=== PATIENT | male | born 1965 | race Two or more races ===

== ENCOUNTER 2018-12-13 06:19 | Inpatient (IN) | payer SELFPAY ==
[~2018-12-13] VITALS: Ht 180.3 cm; Wt 83.9 kg
[2018-12-13] MEDS ORDERED: LIDOCAINE 2% JEL UROJET 10 ML MM ONE ×2 (06:30→06:49)
[2018-12-13] MEDS ORDERED: IV NS 0.9% 1,000 ML BAG IV ONE (06:30)
--- NOTE | 2018-12-13 06:35 | NUR ---
BIBRA FROM 711 FOUND ON THE FLOOR ALTERED. PT CURRENTLY NONVERBAL, OPENS EYES SPONTANEOUSLY AND RESPONSIVE TO PAINFUL STIMULI. PT FOUND WITH PILL BOTTLE NOT UNDER THE PT'S NAME WITH THREE DIFFERENT, UNIDENTIFIED PILLS. O2 SAT 90% ON RA, PLACED ON 2L NC, TOLERATED WELL PT NOW 97%. RESPIRATIONS EVEN AND UNLABORED. SKIN WARM AND INTACT. PLACED IN GOWN AND ON CONTINUOUS MEAT STOCKER, WILL CONTINUE TO MONITOR.
--- NOTE | 2018-12-13 06:36 | NUR ---
MD AT BEDSIDE FOR EVALUATION
--- NOTE | 2018-12-13 06:38 | NUR ---
urine collected . lab made aware for cloth picker
[2018-12-13 06:40] LABS: BASOPHILS % (AUTO) 0.5 % (0.0-2.0); EOSINOPHILS % (AUTO) 1.6 % (0.0-6.0); HEMATOCRIT 42 % (39-51); LYMPHOCYTES # (AUTO) 2.1 /CMM (0.8-4.8); LYMPHOCYTES % (AUTO) 37.7 % (20.0-44.0); MEAN CORPUSCULAR HGB CONC 34 g/dl (31.0-36.0); MEAN CORPUSCULAR VOLUME 86 fL (80-96); MONOCYTES # (AUTO) 0.4 /CMM (0.1-1.30); MONOCYTES % (AUTO) 6.9 % (2.0-12.0); NEUTROPHILS % (AUTO) 53.3 % (43.0-81.0); PLATELET COUNT (AUTO) 210 /CMM (150-450); WHITE BLOOD COUNT (AUTO) 5.6 K/uL (4.3-11.0)
[2018-12-13 06:47] LABS: APPEARANCE,URINE CLEAR (CLEAR); BILIRUBIN,URINE NEGATIVE (NEGATIVE); BLOOD, URINE 1+ Ery/uL (NEGATIVE); COLOR,URINE YELLOW (YELLOW); KETONES,URINE NEGATIVE (NEGATIVE); LEUKOCYTE ESTERASE ,URINE NEGATIVE (NEGATIVE); NITRITE, URINE NEGATIVE (NEGATIVE); PROTEIN,URINE NEGATIVE (NEGATIVE); UGLUCOSE NEGATIVE (NEGATIVE); UROBILINOGEN,URINE 0.2 EU/dL (0.2)
[2018-12-13 06:53] LABS: BACTERIA,URINE Few /HPF (None Seen)
[2018-12-13 06:54] LABS: SQUAMOUS EPITHELIAL CELL,UR Few /HPF (None Seen)
[2018-12-13 06:54] LABS: SERUM AMMONIA 18 umol/L (11-32)
--- NOTE | 2018-12-13 06:54 | NUR ---
BROUGHT BY RADIOLOGY FOR CT
[2018-12-13 07:01] LABS: ALANINE AMINOTRANSFERASE 64 U/L (12-78); ALBUMIN 3.7 g/dL (3.4-5.0); ALCOHOL, BLOOD < 3 mg/dL (0-0); ALKALINE PHOSPHATASE 63 U/L (46-116); ASPARTATE AMINOTRANSFERASE 32 U/L (15-37); BILIRUBIN,DIRECT 0.1 mg/dL (0.0-0.2); BILIRUBIN,TOTAL 0.4 mg/dL (0.2-1.0); CALCIUM, SERUM 8.7 mg/dL (8.5-10.1); CARBON DIOXIDE 25 mmol/L (21-32); CHLORIDE 102 mmol/L (98-107); GLUCOSE 162 mg/dL (74-106); POTASSIUM 3.8 mmol/L (3.5-5.1); SODIUM SERUM 138 mmol/L (136-145); TOTAL PROTEIN, SERUM 7.9 g/dL (6.4-8.2); UREA NITROGEN, BLOOD 21 mg/dL (7-18)
[2018-12-13 07:02] LABS: ACETAMINOPHEN 0 ug/ml (10-30); SALICYLATE 2.3 mg/dL (2.8-20.0)
[2018-12-13] MEDS ORDERED: LORAZEPAM INJ 2 MG/ML VIAL ONE (07:03)
--- NOTE | 2018-12-13 07:03 | NUR ---
RADIOLOGY CALLED, PT UNABLE TO STAY STILL DURING CT. INFORMED MD. PER VERBAL MD ORDER, WILL ADMINISTERED 0.5 MG ATIVAN IV X1 NOW
--- NOTE | 2018-12-13 07:07 | NUR ---
CT SUCCESSFUL WITHOUT ATIVAN ADMINISTERATION. PER VERBAL MD ORDER, WILL HOLD ATIVAN.
--- NOTE | 2018-12-13 07:08 | NUR ---
PT RETURNED FROM CT
[2018-12-13] MEDS ORDERED: LORAZEPAM INJ 2 MG/ML VIAL IV ONE (07:30)
--- NOTE | 2018-12-13 07:31 | NUR ---
GAVE REPORT TO LAURA DE LEON FOR EDWIGE
--- NOTE | 2018-12-13 07:46 | NUR ---
called [facility] its [place]
--- NOTE | 2018-12-13 07:50 | NUR ---
called for tele bed
--- NOTE | 2018-12-13 08:07 | NUR ---
called [facility] again... its [place].
[2018-12-13] MEDS ORDERED: METOPROLOL TARTRATE INJ 5 MG/5 ML AMPUL IV ONE (08:30)
--- NOTE | 2018-12-13 08:31 | NUR ---
MD MADE AWARE OF PT'S BP OF 187/112, PULSE AT 85. VERBAL ORDER OF METOPROLOL 5MG IV RECEIVED. CARRIED OUT ORDER.
[2018-12-13] MEDS ORDERED: METOPROLOL TARTRATE INJ 5 MG/5 ML AMPUL ONE (08:33)
--- NOTE | 2018-12-13 09:10 | NUR ---
REPORT GIVEN TO LISA DE LEON OF TELE UNIT
--- NOTE | 2018-12-13 09:20 | NUR ---
COMPUTER COMPOSITOR NOTES PATIENT TO BE ADMITTED TO UNIT. REPORT RECEIVED FROM SANDRA DE LEON.
[2018-12-13 09:30] VITALS: BP 165/100
--- NOTE | 2018-12-13 09:30 | NUR ---
CHAIN SALES CONSULTANT ADMITTING NOTES PATIENT ARRIVED VIA GURNEY. PATIENT AWAKE ON ROOM AIR. BREATHING IS UNLABORED AND EVEN. NO ACUTE DISTRESS OR SOB NOTED. PATIENT IS AWAKE BUT CONFUSED. RESPONDS TO VERBAL AND TACTILE STIMULI. DENIES PAIN AND DISCOMFORT AT THIS TIME. PATIENT PLACED ON TELE MONITOR. NSR 71 BPM. PATIENT IS ROSALINA SPEAKING ONLY. PATIENT ORIENTED TO UNIT, ROOM, STAFF, PLAN OF CARE. PATIENT ADMITTED UNDER RECREATION SUPERINTENDENT OF LISA HANCOCK DNP, MADE AWARE OF PATIENT ARRIVAL. PATIENT BED ALARM IS ON. PATIENT BED IS LOCKED AND IN LOW POSITION. CALL LIGHT WITHIN REACH. WILL CONTINUE TO MONITOR PATIENT.
[2018-12-13] MEDS ORDERED: IV NS 0.9% 1,000 ML IV PRN (10:45)
[2018-12-13] MEDS ORDERED: ACETAMINOPHEN 325 MG TABLET PO PRN (11:00)
[2018-12-13] MEDS ORDERED: MAGNESIUM HYDROXIDE 30 ML UDC PO PRN (11:00)
[2018-12-13] MEDS ORDERED: TEMAZEPAM 15 MG CAPSULE PO PRN (11:00)
[2018-12-13] MEDS ORDERED: ONDANSETRON HCL/PF 4 MG/2 ML VIAL IVP PRN (11:00)
[2018-12-13] MEDS ORDERED: MAG HYDROX/AL HYDROX/SIMETH 30 ML UDC PO PRN (11:00)
[2018-12-13] MEDS ORDERED: Z GUARD REMEDY 2 OZ OINT TP PRN (11:00)
[2018-12-13] MEDS ORDERED: HYDROCODONE/APAP 5/325MG 1 EACH TABLET PO PRN (11:00)
[2018-12-13 16:00] VITALS: BP 147/80
--- NOTE | 2018-12-13 18:33 | NUR ---
MS RN NOTES PATIENT RESTING INSIDE ROOM. AWAKE, ALERT AND ORIENTED X 4, PATIENT VERBALLY RESPONSIVE AND RESPONDS TO VERBAL AND TACTILE STIMULI. PATIENT VERBALIZES HE IS FEELING BETTER BUT STILL FEELS A LITTLE SLEEPY. SAFETY PRECAUTIONS IN PLACE. IVF INFUSING AND PATIENT TOLERATING WELL. PATIENT VERBALIZES THAT HE WORKS AT [employer]. ALSO VERBALIZED THAT HE HAS A CELLPHONE BUT IT WAS LEFT AT WORK. HOSPITAL PHONE AT BEDSIDE PROVIDED TO PATIENT. WILL ENDORSE TO INCOMING SHIFT FOR EDWIGE. BED LOCKED AND IN LOW POSITION. BILATERAL UPPER SIDE RAILS UP AND LOCKED. BED ALARM ON. CALL LIGHT WITHIN EASY REACH
--- NOTE | 2018-12-13 19:00 | NUR ---
MS SLIPMAN INITIAL NOTES RECEIVED REPORT FROM AM NURSE LISA AND SEEN THE PATIENT IN BED RESTING BUT AROUSES TO TOUCH, DENIES ANY PAIN OR ANY DISCOMFORT. IVF NS AT 75ML/HR INFUSING AT THIS TIME ON HIS RIGHT AC AND HEPLOCK ON HIS LEFT HAND PATENT AND INTACT. RESPIRATION EVEN AND NON-LABORED . KEPT HIM WARM AND COMFORTABLE AT ALL TIMES. BED ALARM SET FOR SAFETY. PLACE CALL LIGHT AT REACH. WILL CONTINUE MONITORING.
[2018-12-13] MEDS ORDERED: LORAZEPAM INJ 2 MG/ML VIAL IV PRN (20:30)
[2018-12-13] MEDS ORDERED: hydrALAZINE HCL IV 20 MG VIAL IV PRN (20:30)
[2018-12-13 20:39] VITALS: BP 126/74
--- NOTE | 2018-12-13 22:51 | NUR ---
ms cornelio notes Pt remains sleeping not in any acute distress noted at this time. IVF still infusing . kept him warm and comfortable at all times. will continue monitoring. place call light at reach.
--- NOTE | 2018-12-14 07:35 | NUR ---
MS WEB DATABASE DEVELOPER CLOSING NOTES PT BACK TO SLEEP AFTER DRINKING SOME WATER THIS MORNING. SLEPT WELL AND STABLE KATHY THE NIGHT. BREATHING EVEN AND NON-LABORED. SKIN WARM AND DRY TO TOUCH. IVF NS AT 75ML/HR STILL INFUSING ON HIS LEFT HAND. NO REDNESS NOTED. HEPLOCK PATENT AND INTACT. KEPT HIM WARM AND COMFORTABLE AT ALL TIMES. ENDORSE TO AM NURSE STAFFORD FOR CONTINUITY OF CARE. PLACE CALL LIGHT AT REACH.
--- NOTE | 2018-12-14 07:40 | NUR ---
RN OPENING NOTES PT AWAKE AND RESTING IN BED. PT PRIMARILY ROSALINA SPEAKER. PT COMPLAINS OF RIGHT LEG PAIN, WILL ADMINISTER PRN PAIN MEDICATIONS. PT HAS A RIGHT AC #18 IV AND LEFT HAND #18 RUNNING NS @75ML/HR. SAFETY PRECAUTIONS IN PLACE, BED IN LOWEST LOCKED POSITION, X2 SIDE RAILS UP AND CALL LIGHT WITHIN REACH. WILL CONTINUE TO MONITOR.
[2018-12-14 07:49] LABS: BASOPHILS % (AUTO) 0.5 % (0.0-2.0); EOSINOPHILS % (AUTO) 2.4 % (0.0-6.0); HEMATOCRIT 45 % (39-51); HEMOGLOBIN 14.9 g/dL (13.5-17.5); LYMPHOCYTES # (AUTO) 2.5 /CMM (0.8-4.8); LYMPHOCYTES % (AUTO) 43.8 % (20.0-44.0); MEAN CORPUSCULAR HGB CONC 33 g/dl (31.0-36.0); MEAN CORPUSCULAR VOLUME 87 fL (80-96); MONOCYTES # (AUTO) 0.4 /CMM (0.1-1.30); MONOCYTES % (AUTO) 7.1 % (2.0-12.0); NEUTROPHILS # (AUTO) 2.6 /CMM (1.8-8.9); NEUTROPHILS % (AUTO) 46.2 % (43.0-81.0); PLATELET COUNT (AUTO) 202 /CMM (150-450); RED BLOOD CELL COUNT(AUTO) 5.16 MIL/uL (4.5-6.0); WHITE BLOOD COUNT (AUTO) 5.6 K/uL (4.3-11.0)
[2018-12-14 07:59] LABS: THYROID STIMULATING HORMONE 0.561 uIU/mL (0.358-3.74)
[2018-12-14 08:00] VITALS: BP 164/96
[2018-12-14 08:03] LABS: CALCIUM, SERUM 8.2 mg/dL (8.5-10.1); CREATININE 0.8 mg/dL (0.6-1.3); MAGNESIUM 2.1 mg/dL (1.8-2.4); PHOSPHORUS 3.6 mg/dL (2.5-4.9); POTASSIUM 4.5 mmol/L (3.5-5.1)
--- NOTE | 2018-12-14 09:31 | NUR ---
RN NOTES PT BLOOD PRESSURE IMPROVED 137/79 HR 79
--- NOTE | 2018-12-14 11:05 | NUR ---
Social service consult requested by ADITYA Anna for altered mental status. Pt. is a 53 year old male who was admitted to [facility] for alerted Mental status. SW met with pt. bedside. Pt. is speaks some Stateless, however prefers to speak in [place]. SW spoke with pt. in [place]. Pt. states he lives in an apartment located at [address] [place] [address], [address] in [facility]. Pt. works at a [employer] located at [facility]. Pt. stated, he was working the shift production associate and around 8 AM in the morning when he was about to leave work, he began getting very anxious and took an ibuprofen. SW informed pt. that his toxicology showed positive for methamphetamines. However, pt. denies using any drugs. Pt. states he drink 1/4 glass of whisky daily to release the stress of the day. Pt's is from [place] and has been in [place] for the past 13 years. Pt's family all reside in [place]. Pt. has not seen his family for the past 13 years. Pt. has a bike that is at the [employer] he works at. Pt's cellphone is with his boss [employer] who can be reached at . Pt. will require a TAP card to get to his apartment. No other social service needs are requested at this time. SW is available, if needed.
[2018-12-14 16:00] VITALS: BP 149/85
--- NOTE | 2018-12-14 19:01 | NUR ---
REPAIR TECH NOTES ALL PAPERWORK, SIGNED, DISCUSSED, COPIED, AND GIVEN TO THE PATIENT. IVS REMOVED. PT REFUSED PICTURES AT DISCHARGE. WILL ENDORSE TO BRAKE DRUM MOLDER NURSE TO CONTINUE DISCHARGE.
--- NOTE | 2018-12-14 19:20 | NUR ---
RN NOTES PT ESCORTED BY RN ACCOMPANIED BY PATIENT'S FRIEND OFF OF UNIT. ID BAND REMOVED AND PATIENT LEFT THE UNIT AT 1914.
== END 2018-12-14 19:15 | disposition home or self-care (01) | DRG 92 ==
LOC: ER 06:21 → TELE 09:04 → MED 09:48
PROVIDERS: ADMIT Hospitalist; ATTEND Hospitalist
DX: G92 Toxic encephalopathy (principal); J98.11 Atelectasis; I16.0 Hypertensive urgency; F15.229 Other stimulant dependence with intoxication, unspecified; G89.29 Other chronic pain
CPT/HCPCS: 36415; 70450-TC; 71045-TC; 80048-TC; 80061-TC; 80076-TC; 80305; 81000-TC; 82140-TC; 83735-TC; 84100-TC; 84443-TC; 84484-TC; 85025-TC; 85730-TC; 87081-TC; 97110-TC; G0378; G0480; J0360; J2060; J3490; J7030